=== PATIENT | male | born 1945 | race Caucasian/White ===

== ENCOUNTER → 2020-08-22 | Outpatient (CLI) | payer OTHER, MEDICARE ==
--- NOTE | 2020-08-23 08:12 | RAD ---
EXAM: Knee,Right Complete CLINICAL HISTORY: PAIN IN RIGHT KNEE COMPARISON STUDY: None. TECHNICAL: 4 x-ray images of the right knee. FINDINGS: Views of the knee demonstrate no fracture or dislocation. Moderate joint space loss of the medial compartment with calcification in the meniscus. Mild degenerative changes of the patellofemoral joint and lateral compartment. Subtle calcification within the lateral meniscus. A small joint effusion is present. IMPRESSION: 1. Moderate medial joint space loss. 2. Chondrocalcinosis. 3. Small joint effusion. Electronically signed by: Howard Antony MD 08/23/2020 8:11 AM [facility]
--- NOTE | 2020-08-23 08:12 | RAD ---
EXAM DESCRIPTION: Pelvis CLINICAL HISTORY: 75 years Male, PAIN IN RIGHT HIP COMPARISON: None. TECHNIQUE: Single view radiograph of the pelvis. IMPRESSION: Partially obscured sacrum and coccyx by overlying bowel. No acute displaced fracture. No dislocation. 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 Moderate arthrosis of the pubic joint. Mild sclerosis along the SI joints. Lower lumbar spondylosis. Electronically signed by: Daniel Hodges MD 08/23/2020 8:10 AM [facility]
== END ==
LOC: RAD 08:02
PROVIDERS: ATTEND Orthopaedic Surgery
DX: M16.0 Bilateral primary osteoarthritis of hip (principal); M24.851 Other specific joint derangements of right hip, not elsewhere classified; M24.852 Other specific joint derangements of left hip, not elsewhere classified; M47.896 Other spondylosis, lumbar region; M53.3 Sacrococcygeal disorders, not elsewhere classified; M11.261 Other chondrocalcinosis, right knee; M25.861 Other specified joint disorders, right knee; M25.461 Effusion, right knee